=== PATIENT | female | born 1990 | race Caucasian/White ===

== ENCOUNTER 2018-08-02 08:45 | Day surgery (SDC) | payer MEDICAID ==
[2018-07-30 13:40] LABS: BASOPHILS 0.1 % (0-2); EOSINOPHILS 1.3 % (0-7); HEMATOCRIT 40.8 % (36.0-48.0); HEMOGLOBIN 13.9 g/dL (12-16); IMMATURE GRANULOCYTES 0.1 % (0-5); LYMPHOCYTES 40.4 % (15-50); MCH 30.5 pg (26.0-34.0); MCHC 34.1 g/dL (31.0-37.0); MCV 89.7 fL (80.0-100.0); MEAN PLATELET VOLUME 11.3 fL (7.4-10.4); MONOCYTES 7.8 % (2-11); NEUTROPHILS 50.3 % (40-80); RBC 4.55 10x6/uL (4.00-5.40); RDW 12.5 % (11.5-14.5); WBC 6.8 10x3/uL (4.8-10.8)
[2018-07-30 13:41] LABS: PLATELET COUNT 211 10x3/uL (130-400)
[~2018-08-02] VITALS: Ht 208.3 cm; Wt 59.0 kg
[~2018-08-02 08:45] MED LIST: HYDROCODON-ACE1 EAC7 PO; IBUPROFEN600 MG PO; PRENAVITE1 TAB PO
[2018-08-02] MEDS ORDERED: TYLENOL #4 W/CO1 TAB PO (09:51)
[2018-08-02 10:01] VITALS: BP 110/71; Ht 208.3 cm; Wt 59.0 kg
[2018-08-02 10:16] LABS: HCG URINE NEGATIVE (NEGATIVE)
--- NOTE | 2018-08-02 13:36 | NUR ---
PT ABLE TO VOID AT THIS TIME, IV DC'ED INTACT, NO REDNESS OR SWELLING AT SITE. DC INSTRUCTIONS REVIEWED PT VERBALIZES UNDERSTANDING AND AGRESS.
--- NOTE | 2018-08-02 13:38 | NUR ---
DC INSTRUCTIONS REVIEWED AT THIS TIME, PT VERBALIZES UNDERSTANDING AND AGREES. PT IV REMOVED AT THIS TIME, INTACT, NO REDNESS OR SWELLING AT SITE.
--- NOTE | 2018-08-02 13:45 | NUR ---
PT LEAVING OPS AT THIS TIME. VSS NAD NOTED.
== END 2018-08-02 13:48 | disposition home or self-care (01) ==
LOC: D.OPS 08:45 → D.PAN 09:30 → D.OPS 09:35
PROVIDERS: Obstetrics & Gynecology
DX: N80.0 Endometriosis of uterus (principal)